=== PATIENT | female | born 1995 | race Caucasian/White ===

== ENCOUNTER 2017-02-25 06:17 | Inpatient (IN) | payer MEDICAID ==
[~2017-02-25] VITALS: Ht 157.5 cm; Wt 74.5 kg
--- NOTE | ~2017-02-25 | OR ---
PATIENT'S NAME: REED RODRIGUEZ [facility] AGE: 21 Y [address] ROOM: [place] [address] LOCATION: [facility] ADMIT DATE: 02/25/2017 OR/Procedure Report DISCHARGE DATE: FAMILY PHYSICIAN: Annetta Joseph APRN ATTENDING PHYSICIAN: BAILEE LACY SURGEON: Bailee Lacy MD OIL PIPE INSPECTOR HELPER: DATE OF PROCEDURE: 02/25/2017 PROCEDURE PERFORMED: Spontaneous vaginal delivery over intact perineum. PREOPERATIVE DIAGNOSIS: Intrauterine at 41 weeks and 1 day. POSTOPERATIVE DIAGNOSES: 1. Intrauterine at 41 weeks and 1 day. 2. Small for gestational age. ANTIBIOTICS: None indicated. ANESTHESIA: Epidural. FINDINGS: Viable male , weight 5 pounds 9 ounces. Apgars of 8 and 9. Intact placenta with 3-vessel cord. Bilateral periurethral lacerations and a first-degree perineal laceration. Hemostatic at the end of the procedure. ESTIMATED BLOOD LOSS: 300 mL. COMPLICATIONS: None. DISPOSITION: The patient is stable. remained in the room with mother. INDICATION FOR THE PROCEDURE: The patient is a 21-year-old, G3, P0-0-2-0, who presented on 02/25/2017 for an induction of labor secondary to being post dates with an intrauterine at 41 weeks and 1 day. The cervix was unfavorable and a Maldonado bulb was placed and inflated with 30 mL of saline. The patient was started on IV Pitocin at the same time. She progressed to approximately 4 cm and the Maldonado bulb fell out. Amniotomy was performed after that with clear fluid. She then progressed to 5 cm. The patient desired an epidural and this was placed. After that point in time, the patient had late decelerations necessitating shutting off Pitocin. After approximately 45 to 50 minutes, the Pitocin was resumed and the patient progressed to complete. DESCRIPTION OF PROCEDURE: The patient was placed in dorsal lithotomy position in stirrups. With maternal expulsive efforts, the head was delivered in the LENNIE presentation. head was allowed to restitute. With the PATIENT'S NAME: REED RODRIGUEZ [facility] AGE: 21 Y [address] ROOM: [place] [address] LOCATION: [facility] ADMIT DATE: 02/25/2017 OR/Procedure Report DISCHARGE DATE: FAMILY PHYSICIAN: Annetta Joseph APRN ATTENDING PHYSICIAN: BAILEE LACY assistance of gentle downward and upward traction, the shoulders were delivered followed by the remainder of the body. Cord was clamped and cut. Infant was handed off to the awaiting nurses. Cord blood was obtained. IV Pitocin was started per protocol. Gentle downward traction was placed on the umbilical cord and the placenta delivered spontaneously and intact. Cervix, vagina and perineum were inspected for lacerations with the finding of a first-degree perineal laceration and bilateral periurethral lacerations which were repaired per routine with 3-0 Vicryl. All needle, sponge, and instrument counts were noted to be correct x2 at the completion of the case and the was remained in the room with the mother. BAILEE LACY MD GT/modl /[id number] d: 02/25/17 2319 t: 02/26/17 1119, OPERATIVE SUMMARY
[~2017-02-25 06:17] MED LIST: PRENATAL 1+1)(P1 TAB PO; ZOFRAN4 MG PO
[2017-02-25] MEDS ORDERED: PHENERGAN25 M1 PO (06:48)
[2017-02-25 07:51] LABS: BASOPHIL # 0.1 K/uL (0.0-0.2); BASOPHIL % 0.5 %; EOSINOPHIL # 0.1 K/uL (0.0-0.5); HEMATOCRIT 37.5 % (33.0-46.0); HEMOGLOBIN 13.1 g/dL (11.0-15.0); IMMATURE GRANULOCYTE # 0.1 K/uL (0.0-0.3); IMMATURE GRANULOCYTE % 0.8 %; LYMPHOCYTE % 17.5 %; MCH 32.5 pg (27.0-34.0); MCHC 34.9 gm/dL (32.0-36.5); MCV 93.1 fl (83.0-98.0); MONOCYTE # 0.7 K/uL (0.0-1.0); MONOCYTE % 5.7 %; MPV 10.1 fl (9.4-12.4); NEUTROPHIL # (ANC) 8.6 K/uL (1.8-7.8); NEUTROPHIL % 74.5 %; NRBC % 0 /100WBC (0-0.00); PLATELET COUNT 198 K/uL (150-450); RBC 4.03 M/uL (3.50-5.00); RDW-CV 12.7 % (11.9-14.6); WBC 11.5 K/uL (4.0-11.0)
--- NOTE | 2017-02-26 05:24 | NUR ---
VSS. FUNDUS FIRM, -1, SMALL FLOW. MOTRIN/PERC AT 0052. VOIDING WITHOUT DIFFICULTY.
[2017-02-26 05:41] LABS: BASOPHIL # 0.1 K/uL (0.0-0.2); BASOPHIL % 0.3 %; EOSINOPHIL % 0.3 %; HEMATOCRIT 32.1 % (33.0-46.0); HEMOGLOBIN 11.2 g/dL (11.0-15.0); IMMATURE GRANULOCYTE # 0.1 K/uL (0.0-0.3); IMMATURE GRANULOCYTE % 0.7 %; LYMPHOCYTE # 1.2 K/uL (0.8-4.0); LYMPHOCYTE % 7.8 %; MCH 32.7 pg (27.0-34.0); MCHC 34.9 gm/dL (32.0-36.5); MCV 93.6 fl (83.0-98.0); MONOCYTE # 0.9 K/uL (0.0-1.0); MONOCYTE % 6.2 %; MPV 9.9 fl (9.4-12.4); NEUTROPHIL # (ANC) 12.9 K/uL (1.8-7.8); NEUTROPHIL % 84.7 %; NRBC % 0 /100WBC (0-0.00); PLATELET COUNT 176 K/uL (150-450); RBC 3.43 M/uL (3.50-5.00); RDW-CV 12.7 % (11.9-14.6); WBC 15.2 K/uL (4.0-11.0)
--- NOTE | 2017-02-26 17:20 | NUR ---
Last VS: T:98.5 P:60 R: 16 BP: 95/53 Pain ratin Last pain med: Percocet/MOTRIN Medicated at: 1315 Effective: Yes Breasts: SOFT Nipples: OK Fundus: FIRM Lochia: SMALL Epis/Perineum: intact Voiding well: Y Significant event: *.UP AD CHU, BUT STAYED IN BED MOST OF THE DAY. DAD HAS MANY, MANY QUESTIONS. GIVEN ENFAMIL PER PARENTS REQUEST.
[2017-02-27] MEDS ORDERED: SURFAK240 MG PO (09:08)
[2017-02-27] MEDS ORDERED: MOTRIN800 MG PO (09:08)
[2017-02-27] MEDS ORDERED: Norco PO (09:10)
--- NOTE | 2017-02-27 10:30 | NUR ---
Introduced self/role to patient and her Donny. They currently live in [place]. He has 3 other children from previous relationships who live in [place]. They have all of the needed baby supplies right now but was interested in the help agencies in [place] if they ran into trouble. Gave them some resources. Are working with WIC and have an appointment tomorrow. Reminded them to contact Medicaid to get baby added, provided number. Talked about post depression and gave them a hand out. This is patients first child. There only question was about a recommendation for a nursing service director in [place]. Let them know I couldn't recommend any. They knew their names and clinics. I encourage them to call and make sure they accepted Medicaid. If they choose a doctor and didn't like them could always switch. If they needed for assistance I would be happy to come back and talk more. No other questions or concerns at this time. Planning to go home today. Baby's name is Raymond.
== END 2017-02-27 14:30 | disposition disaster alternative care site (69) | DRG 775 ==
LOC: GOBS 06:17 → GOBM 06:17 → GOBS 06:19 → GOBM 06:20 → GOBS 21:58
PROVIDERS: ADMIT Obstetrics & Gynecology
DX: O70.0 First degree perineal laceration during delivery (principal); Z37.0 Single live birth; Z3A.41 41 weeks gestation of pregnancy
CPT/HCPCS: J2590; J3010; J7120